=== PATIENT | female | born 1975 | race Caucasian/White ===

== ENCOUNTER 2017-09-02 02:03 | Emergency (ER) | payer BC ==
[~2017-09-02] VITALS: Ht 157.5 cm; Wt 82.5 kg
[~2017-09-02 02:03] MED LIST: Z.0.NO CURRENT MEDS
[2017-09-02 02:07] VITALS: BP 132/71; PULSE 86; RESP 16; TEMP 97.7; O2SAT 99
--- NOTE | 2017-09-02 02:37 | PD ---
HPI Chief Complaint: Skin Problem Time Seen by Provider: 02:23 Travel History International Travel<30 days: No Contact w/Intl Traveler<30days: No Traveled to known affect area: No History of Present Illness HPI 42-year-old white female presents to emergency department complains of a rash. She states that over the past week she has noted a progressive rash that started off on her back. She states that it has now progressed to be diffusely on her body. She states that is very pruritic in nature. She's been using over -the-counter calamine lotion and taking Benadryl without relief. She cannot recall any causative agent. She denies any recent illness or contacts. No changes in her environment or foods. She denies any recent illness. No fever or chills. No cough or congestion. No difficulty swallowing. No chest pain or shortness of breath. PFSH Past Medical History Medical History: Denies Significant Hx Diminished Hearing: No Tetanus Vaccination: Unknown ?: Not Dilation and Curettage (D&C): Yes Past Surgical History Genitourinary Surgery: Yes (LEAP) Social History Alcohol Use: No Tobacco Use: No Substance Use: No Allergies-Medications (Allergen,Severity, Reaction): Coded Allergies: No Known Allergies (Unverified , 09/02/17) Reported Meds & Prescriptions Reported Meds & Active Scripts Active Reported No Current Meds (Miscellaneous Medication) Misc Review of Systems Except as stated in HPI: all other systems reviewed are Neg General / Constitutional: No: Fever, Chills Eyes: No: Diploplia, Blurred Vision HENT: No: Headaches, Sore Throat Cardiovascular: No: Chest Pain or Discomfort, Palpitations Respiratory: No: Cough, Shortness of Breath Gastrointestinal: No: Nausea, Vomiting Genitourinary: No: Frequency, Dysuria Musculoskeletal: No: Arthralgias, Limited ROM Skin: Positive Rash, Positive Itching, No Change in nails Neurologic: No: Weakness, Dizziness Physical Exam Narrative GENERAL: Well-developed, well-nourished in no acute distress. Nontoxic appearing. HEAD: Normocephalic, atraumatic. EYES: Pupils equal round and reactive. Extraocular motions intact. No scleral icterus. No injection or drainage. ENT: TMs clear without erythema. The external auditory canals clear. Nose: clear . Posterior pharynx is pink and moist. No tonsillar edema or exudate. Uvula midline. Airway patent. NECK: Trachea midline.Supple, nontender, moves head freely. No central bony tenderness or spasm. CARDIOVASCULAR: Regular rate and rhythm without murmurs, gallops, or rubs. RESPIRATORY: Clear to auscultation. Breath sounds equal bilaterally. No wheezes , rales, or rhonchi. GASTROINTESTINAL: Abdomen soft, non-tender, nondistended. No hepato-splenomegaly , or palpable masses. No guarding. EXTREMITIES: No clubbing, cyanosis, or edema. No joint tenderness, effusion, or edema noted. BACK: Nontender without deformity or crepitance. No flank tenderness. Skin: Patient has diffuse maculopapular rash more so on her contact surfaces of her body but she does have multiple satellite lesions scattered throughout her whole trunk and chest and extremities. These do casi. There is no pustules or vesicles. Data Data Last Documented VS Vital Signs Date Time Temp Pulse Resp B/P (MAP) Pulse Ox O2 Delivery O2 Flow Rate FiO2 09/02/17 02:07 97.7 86 16 132/71 (91) 99 [facility] Medical Decision Making Medical Screen Exam Complete: Yes Emergency Medical Condition: Yes Medical Record Reviewed: Yes Differential Diagnosis MDM: High Differential diagnoses: Abscess, folliculitis, cellulitis, lymphangitis, abrasion, contact dermatitis Narrative Course Patient's exam is more consistent with a contact type dermatitis. It does not sound typical of a infectious process. She has not been ill recently. I've informed her that we will try a course of prednisone. Patient's given prednisone 60 mg and Benadryl 50 g by mouth. This is contact dermatitis Diagnosis Primary Impression: Contact dermatitis Qualified Codes: L25.9 - Unspecified contact dermatitis, unspecified cause Patient Instructions: General Instructions Additional Instructions: Rest. Aveeno bath. 50 mg of Benadryl every 4 hours as needed for additional itching. Claritin and prednisone. Follow-up with a medical doctor within one week. Perform a diary of all your foods, contacts, exposures and skin care products. Med/Other Pt SpecificInfo: Prescription(s) given Disposition: DISCHARGE HOME Condition: Stable Benito Pimentel Sep 02, 2017 02:37
[2017-09-02] MEDS ORDERED: PRED20 PO (02:39)
[2017-09-02] MEDS ORDERED: CLAR10CA3 PO (02:39)
[2017-09-02] MEDS ORDERED: diphenhydrAMINE HCL 50 MG CAP PO ONE (02:45)
[2017-09-02] MEDS ORDERED: predniSONE 20 MG TAB PO ONE (02:45)
== END 2017-09-02 02:50 | disposition home or self-care (01) ==
LOC: NEPK 02:03
DX: L25.9 Unspecified contact dermatitis, unspecified cause (principal)
CPT/HCPCS: 99284; J7512; Q0163

== ENCOUNTER 2017-09-30 09:38 | Emergency (ER) | payer BC ==
[~2017-09-30] VITALS: Ht 157.5 cm; Wt 85.0 kg
[~2017-09-30 09:38] MED LIST changes: +CLAR10CA3 PO; +PRED20 PO
[2017-09-30 09:40] VITALS: BP 175/91; PULSE 107; RESP 20; TEMP 97.9; O2SAT 98
[2017-09-30] MEDS ORDERED: PERM5CRE TOPICAL (10:07)
--- NOTE | 2017-09-30 10:13 | PD ---
HPI Chief Complaint: Skin Problem Time Seen by Provider: 10:06 Travel History International Travel<30 days: No Contact w/Intl Traveler<30days: No Traveled to known affect area: No History of Present Illness HPI This is a 42-year-old female who presents for evaluation of a rash. Symptoms started one month ago. The rash is pruritic, started on the torso and spread to the extremities. She lives with her father who has no rash. Denies any new medications, creams, lotions, detergents, recent travel., Denies any cough or congestion, fevers or chills, abdominal pain, diarrhea. She was seen here on September 01 and prescribed prednisone and Benadryl. This did not help at all. She has no other complaints at this time. [facility] Past Medical History Diminished Hearing: No ?: Not LMP: 09/24/17 Dilation and Curettage (D&C): Yes Past Surgical History Genitourinary Surgery: Yes (LEAP) Social History Alcohol Use: No Tobacco Use: No Substance Use: No Allergies-Medications (Allergen,Severity, Reaction): Coded Allergies: No Known Allergies (Unverified , 09/02/17) Reported Meds & Prescriptions Reported Meds & Active Scripts Active Permethrin Topical 5% (Permethrin) 5% Cream 1 Applic TOPICAL ONCE Claritin (Loratadine) 10 Mg Cap 10 Mg PO DAILY 10 Days Prednisone 20 Mg Tab 40 Mg PO BID Take 40 mg (2 tablets) daily for 5 days Reported No Current Meds (Miscellaneous Medication) Misc Review of Systems Except as stated in HPI: all other systems reviewed are Neg Physical Exam Narrative GENERAL: Pleasant well developed well-nourished female in no acute distress SKIN: Warm and dry. Widespread salmon-colored maculopapular rash noted primarily in the torso but also on the extremities. No vesicles, no pustules, no erythema, no petechiae, no annular lesions HEAD: Atraumatic. Normocephalic. EYES: Pupils equal and round. No scleral icterus. No injection or drainage. ENT: No nasal bleeding or discharge. Mucous membranes pink and moist. NECK: Trachea midline. No JVD. CARDIOVASCULAR: Regular rate and rhythm. No murmur appreciated. RESPIRATORY: No accessory muscle use. Clear to auscultation. Breath sounds equal bilaterally. GASTROINTESTINAL: Abdomen soft, non-tender, nondistended. Hepatic and splenic margins not palpable. MUSCULOSKELETAL: No obvious deformities. No clubbing. No cyanosis. No edema. NEUROLOGICAL: Awake and alert. No obvious cranial nerve deficits. Motor grossly within normal limits. Normal speech. PSYCHIATRIC: Appropriate mood and affect; insight and judgment normal. Data Data Last Documented VS Vital Signs Date Time Temp Pulse Resp B/P (MAP) Pulse Ox O2 Delivery O2 Flow Rate FiO2 09/30/17 09:40 97.9 107 20 175/91 (119) 98 Room Air MDM Medical Decision Making Medical Screen Exam Complete: Yes Emergency Medical Condition: Yes Medical Record Reviewed: Yes Differential Diagnosis pityriasis rosea, fixed drug eruption, viral exanthem, irritant contact dermatitis, allergic contact dermatitis Narrative Course 42-year-old female with 1 month duration of a pruritic maculopapular rash primarily on the torso. Her examination and history of pruritic rash which appears to be in a "[place] tree" distribution, unresolved with use of prednisone and Benadryl, suspicious for pityriasis rosea. No obvious "herald patch." The patient was counseled that most of the time this rash resolves in 2 months. She is encouraged to follow-up with a motorcycle police officer the rash persists. The patient will also be given a prescription for permethrin cream in case of scabies. She is stable for discharge. Diagnosis Primary Impression: Pruritic rash Additional Impression: Pityriasis rosea Additional Instructions: Medication as prescribed. Continue calamine lotion, Benadryl. Follow up with a motorcycle police officer if the rash has not subsided in one month. Return for any emergent medical conditions. Med/Other Pt SpecificInfo: Prescription(s) given Scripts Permethrin Topical 5% (Permethrin Topical 5%) 5% Cream 1 APPLIC TOPICAL ONCE for Scabies, #1 TUBE 1 Refill Prov: Savannah Blanton DO 09/30/17 Disposition: 01 DISCHARGE HOME Condition: Stable Herbert Bhakta Sep 30, 2017 10:13
== END 2017-09-30 10:45 | disposition home or self-care (01) ==
LOC: NEPD 09:38
DX: L42 Pityriasis rosea (principal)
CPT/HCPCS: 99283

== ENCOUNTER 2018-04-15 20:43 | Emergency (ER) | payer OTHER, BC ==
[~2018-04-15] VITALS: Ht 157.5 cm; Wt 85.0 kg
[~2018-04-15 20:43] MED LIST changes: +PERM5CRE TOPICAL
[2018-04-15 20:49] VITALS: BP 148/85; PULSE 93; RESP 14; TEMP 98; O2SAT 98
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
[2018-04-15] MEDS ORDERED: IBUPROFEN 600 MG TAB PO ONE (23:15)
[2018-04-15] MEDS ORDERED: ONDANSETRON ODT 4 MG TAB PO ONE (23:15)
[2018-04-15] MEDS ORDERED: CYCLOBENZAPRINE HCL 10 MG TAB PO ONE (23:15)
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
[2018-04-15] MEDS ORDERED: CYCL10TA PO (23:57)
== END 2018-04-16 00:34 | disposition home or self-care (01) ==
LOC: NEPD 20:43 → NED 20:43 → NEPD 04-16 00:34
DX: S16.1XXA Strain of muscle, fascia and tendon at neck level, initial encounter (principal); V49.59XA Passenger injured in collision with other motor vehicles in traffic accident, initial encounter
CPT/HCPCS: 70450; 72125; 84703